=== PATIENT | male | born 1990 | race Hispanic/Latino ===

== ENCOUNTER 2016-07-24 06:40 | Emergency (ER) | payer OTHER ==
[2016-07-24 06:48] VITALS: O2SAT 100
[2016-07-24] MEDS ORDERED: Sodium Chloride 0.9% 1,000 ML IV STA (07:34)
--- NOTE | 2016-07-24 07:50 | ED PDOC ---
Syncope/Near Syncope/Dizziness Time Seen by Provider: 07/24/16 07:10 Chief Complaint (Nursing): Syncope Chief Complaint (Provider): Syncope History Per: Patient History/Exam Limitations: no limitations Onset/Duration Of Symptoms: Mins Current Symptoms Are (Timing): Better Number Of Syncopal Episodes: 1 Activity At Onset Of Symptoms: Sitting Associated Symptoms Preceding Syncopal Episode: Lightheadedness Seizure Or Post-ictal Symptoms: None Fall Associated With With Symptoms: Yes, No Injury As Result Of Fall Severity: Mild Additional Complaint(s): Patient is a 25 yea rold male brought to ED by EMS for syncope this [place] while [place] the train. Patient states he became acutely dizzy followed by syncope, states he does not remember falling to the floor but woke up there. As per bystanders patient had a possible seizure but patient denies any history of seizure. States that when he came too there was no confusion, tongue biting or urinary incontinence. History of similar syncopal episodes a few months ago but admits he was never evaluated at that time. Denies headache, chest pain, SOB, current dizziness, nausea, vomiting, ear pain, neck pain, calf pain or recent travel. Past Medical History Reviewed: Historical Data, Nursing Documentation, Vital Signs Vital Signs: Last Vital Signs Temp 98 F 07/24/16 06:45 Pulse 83 07/24/16 06:45 Resp 20 07/24/16 06:45 BP 101/51 L 07/24/16 06:45 Pulse Ox 100 07/24/16 06:45 - Medical History PMH: No Chronic Diseases - Surgical History Surgical History: No Surg Hx - Family History Family History: States: Other - Living Arrangements Living Arrangements: With Family - Social History Current smoker - smoking cessation education provided: No Alcohol: Occasional Drugs: Denies - Home Medications Home Medications: Ambulatory Orders Medication Instructions Recorded No Known Home Med 07/24/16 - Allergies Allergies/Adverse Reactions: Allergies Allergy/AdvReac Type Severity Reaction Status Date / Time No Known Allergies Allergy Verified 07/24/16 06:45 Review of Systems ROS Statement: Except As Marked, All Systems Reviewed And Found Negative Constitutional: Negative for: Weakness Eyes: Negative for: Vision Change Cardiovascular: Negative for: Chest Pain, Palpitations, Light Headedness Respiratory: Negative for: Shortness of Breath Gastrointestinal: Negative for: Nausea, Vomiting Genitourinary Male: Negative for: Incontinence Musculoskeletal: Negative for: Neck Pain Skin: Negative for: Rash Neurological: Positive for: Dizziness (resolved ). Negative for: Weakness, Numbness, Headache Physical Exam - Reviewed Nursing Documentation Reviewed: Yes Vital Signs Reviewed: Yes - Physical Exam Appears: Positive for: Non-toxic, No Acute Distress Head Exam: Positive for: ATRAUMATIC, NORMAL INSPECTION Skin: Positive for: Normal Color, Warm Eye Exam: Positive for: Normal appearance, PERRL Neck: Positive for: Normal, Painless ROM, Supple Cardiovascular/Chest: Positive for: Regular Rate, Rhythm, Chest Non Tender. Negative for: Murmur Respiratory: Positive for: Normal Breath Sounds. Negative for: Respiratory Distress Gastrointestinal/Abdominal: Positive for: Normal Exam. Negative for: Tenderness , Distended Extremity: Positive for: Normal ROM. Negative for: Pedal Edema, Calf Tenderness Neurologic/Psych: Positive for: Alert, sex therapist II-XII (grossly intact ), Oriented. Negative for: Motor/Sensory Deficits - Laboratory Results Result Diagrams: 07/24/16 07:50 07/24/16 07:50 - ECG ECG: Positive for: Interpreted By Me ECG Rhythm: Positive for: Normal QRS, Normal ST Segment, Sinus Rhythm. Negative for: ST/T Changes Rate: 72 O2 Sat by Pulse Oximetry: 100 (RA) Pulse Ox Interpretation: Normal Medical Decision Making Medical Decision Making: Time: 709 Initial impression: Syncope Initial plan: -- CT-head -- EKG -- Alcohol serum -- CMP -- UDS -- Prolactin -- Troponin -- CBC -- D-Dimer -- CXR -- Eve MCARTHUR Scribe Attestation: Documented by Batsheva Jimenez acting as a scribe for Angeli Mckeon MD MD Scribe Attestation: All medical record entries made by the Scribe were at my direction and personally dictated by me. I have reviewed the chart and agree that the record accurately reflects my personal performance of the history, physical exam, medical decision making, and the department course for this patient. I have also personally directed, reviewed, and agree with the discharge instructions and disposition. 9.30p - CT scanner not funcitional. Case d/w Dr. Pascal. Will do MRI instead. Patient is aware. 10.30 - Father at bedside. 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 He has been seen by neuro and cardiology long time ago. He has not seen a doctor in a while. Will refer to IM and neuro nursing education consultant. Disposition - Clinical Impression Clinical Impression: Vasovagal syncope - Patient ED Disposition Is Patient to be Admitted: No Doctor Will See Patient In The: Office - Disposition Referrals: Jose Alberto Flores MD [Staff Provider] - Bebeto Tafoya MD [Staff Provider] - Disposition: Routine/Home Disposition Time: 10:15 Condition: STABLE Instructions: Syncope (ED) Forms: [facility] (Hungarian) - POA Present On Arrival: None
[2016-07-24 07:54] VITALS: PULSE 72
[2016-07-24 08:06] LABS: BASO # 0.1 K/uL (0.0-0.2); BASO % 0.8 % (0.0-2.0); EOS # 0.1 K/uL (0.0-0.7); EOS % 1.1 % (0.0-4.0); HEMATOCRIT 45.1 % (35.0-51.0); MEAN CORPUSCULAR HEMOGLOBIN 31.3 pg (27.0-31.0); MEAN CORPUSCULAR HGB CONC 35.6 g/dL (33.0-37.0); MEAN PLATELET VOLUME 9.3 fl (7.2-11.7); MONO # 0.6 K/uL (0.0-0.8); NEUT # 6.6 K/uL (1.8-7.0); NEUT % 63.1 % (50.0-75.0); NRBC % 0.2 % (0.0-0.0); RED CELL DISTRIBUTION WIDTH 12.9 % (11.5-14.5); WHITE BLOOD COUNT 10.5 K/uL (4.8-10.8)
[2016-07-24 08:18] LABS: ALCOHOL SERUM < 10 mg/dl (0-10); ALKALINE PHOSPHATASE 75 U/L (38-126); ALT/SGPT 24 U/L (21-72); AST/SGOT 23 U/L (17-59); BILIRUBIN,TOTAL 0.7 mg/dl (0.2-1.3); BLOOD UREA NITROGEN 16 mg/dl (9-20); CALCIUM 9.9 mg/dL (8.4-10.2); CARBON DIOXIDE 24 mmol/L (22-30); CHLORIDE 103 mmol/L (98-107); GFR AFRICAN-AMERICAN > 60; GLUCOSE,RANDOM 108 mg/dL (75-110); SODIUM 142 mmol/l (132-148)
--- NOTE | 2016-07-24 08:22 | RAD ---
HISTORY: syncope COMPARISON: No prior. TECHNIQUE: Chest PA and lateral FINDINGS: LUNGS: No active pulmonary disease. PLEURA: No significant pleural effusion identified. No pneumothorax apparent. CARDIOVASCULAR: Normal. OSSEOUS STRUCTURES: No significant abnormalities. VISUALIZED UPPER ABDOMEN: Normal. OTHER FINDINGS: None. IMPRESSION: No active disease.
[2016-07-24 08:26] LABS: ALB/GLOB RATIO 1.8 (1.0-2.1)
[2016-07-24 08:37] LABS: POTASSIUM 3.8 MMOL/L (3.6-5.0)
--- NOTE | 2016-07-24 10:20 | CT ---
PROCEDURE: CT HEAD WITHOUT CONTRAST. HISTORY: syncope COMPARISON: None available. TECHNIQUE: Axial computed tomography images were obtained through the head/brain without intravenous contrast. Radiation dose: Total exam DLP = 954 mGy-cm. This CT exam was performed using one or more of the following dose reduction techniques: Automated exposure control, adjustment of the mA and/or kV according to patient size, and/or use of iterative reconstruction technique. FINDINGS: HEMORRHAGE: No intracranial hemorrhage. BRAIN: No mass effect or edema. No atrophy or chronic microvascular ischemic changes. VENTRICLES: Unremarkable. No hydrocephalus. CALVARIUM: Unremarkable. PARANASAL SINUSES: Unremarkable as visualized. No significant inflammatory changes. MASTOID AIR CELLS: Unremarkable as visualized. No inflammatory changes. OTHER FINDINGS: None. IMPRESSION: Normal CT of the Head.
[2016-07-24 10:57] VITALS: TEMP 98
[2016-07-24 11:11] VITALS: BP 121/65; RESP 14
--- NOTE | 2016-07-25 14:46 | CARD ---
APPROVED REPORT EKG Measurement Heart [id number] <Conclusion> Normal sinus rhythm Normal ECG
== END 2016-07-24 11:00 | disposition home or self-care (01) ==
LOC: H.ER 06:40
DX: R55 Syncope and collapse (principal)